=== PATIENT | female | born 1960 | race African-American/Black ===

== ENCOUNTER 2016-08-31 14:28 | Emergency (ER) | payer BC ==
[~2016-08-31] VITALS: Ht 165.1 cm; Wt 86.2 kg
[~2016-08-31 14:28] MED LIST: ALPR0.5T PO; ASPI81TA2 PO; CAND4TAB PO; INSU100I13 SQ; INSU100I17 SQ; METH4TAB2 PO
[2016-08-31 14:46] VITALS: BP 149/71
[2016-08-31] MEDS ORDERED: CYCL10TA2 PO (16:56)
[2016-08-31] MEDS ORDERED: CAND32TA2 PO (16:56)
--- NOTE | 2016-08-31 16:56 | PHYS DOC ---
Past Medical History Past Medical History: Diabetes-Type II, Hypertension Past Surgical History: Other Additional Past Surgical Histo: bowel resection, hernia repair Alcohol Use: Occasionally Drug Use: None Adult General Chief Complaint Chief Complaint: LOWER EXT PAIN HPI HPI Patient is a 56 year old female with history of diabetes type 2 and hypertension who presents today with right groin pain that began 2 days ago after stubbing her right groin on furniture. Patient denies falling. Patient herself is requesting a muscle relaxer. Review of Systems Review of Systems Constitutional: Denies fever or chills [] Eyes: Denies change in visual acuity, redness, or eye pain [] HENT: Denies nasal congestion or sore throat [] Respiratory: Denies cough or shortness of breath [] Cardiovascular: No additional information not addressed in HPI [] GI: Denies abdominal pain, nausea, vomiting, bloody stools or diarrhea [] : Denies dysuria or hematuria [] Musculoskeletal: Right groin pain Integument: Denies rash or skin lesions [] Neurologic: Denies headache, focal weakness or sensory changes [] Endocrine: Denies polyuria or polydipsia [] Allergies Allergies Allergies Coded Allergies Type Severity Reaction Last Updated Verified lisinopril Allergy Unknown 03/25/15 Yes Physical Exam Physical Exam Constitutional: Well developed, well nourished, no acute distress, non-toxic appearance. [] HENT: Normocephalic, atraumatic, bilateral external ears normal, oropharynx moist, no oral exudates, nose normal. [] Eyes: PERRLA, EOMI, conjunctiva normal, no discharge. [] Neck: Normal range of motion, no tenderness, supple, no stridor. [] Cardiovascular:Heart rate regular rhythm, no murmur [] Lungs & Thorax: Bilateral breath sounds clear to auscultation [] Abdomen: Bowel sounds normal, soft, no tenderness, no masses, no pulsatile masses. [] Skin: Warm, dry, no erythema, no rash. [] Back: No tenderness, no CVA tenderness. [] Extremities: Right groin with no obvious bruising. Tenderness diffusely on palpation of the right proximal hip. No right lower quadrant tenderness. Slightly Limited range of motion to the right lower extremity due to pain especially internal rotation. Neurologic: Alert and oriented X 3, normal motor function, normal sensory function, no focal deficits noted. [] Psychologic: Affect normal, judgement normal, mood normal. [] Current Patient Data Vital Signs Vital Signs Date Time Temp Pulse Resp B/P Pulse Ox O2 Delivery O2 Flow Rate FiO2 08/31/16 14:46 98.8 97 18 98 Room Air 98.8 EKG EKG [] Radiology/Procedures Radiology/Procedures [] Course & Med Decision Making Course & Med Decision Making Pertinent Labs and Imaging studies reviewed. (See chart for details) Patient is in the ED complaining of contusion to the right groin. She was discharged with Flexeril. She also requested a refill of high blood pressure medicine. She states she'll follow-up with her PCP as soon as possible. Rx for Atacand given for 7 days. She was provided return precautions and discharged in stable condition Dragon Disclaimer Dragon Disclaimer This electronic medical record was generated, in whole or in part, using a voice recognition dictation system. Departure Departure Impression: Primary Impression: Contusion of groin, right Additional Impression: Medication refill Disposition: HOME, SELF-CARE Condition: STABLE Referrals: UNKNOWN PCP NAME (PCP) Follow-up with your own doctor in one week Patient Instructions: Contusion Additional Instructions: You were seen for right groin contusion. Please follow-up with your primary care doctor in the next 7 days. Come back to the ED if symptoms worsen. Scripts Cyclobenzaprine Hcl 10 Mg Tablet1 Tab PO TID #30 TAB Prov:MENDY TOMAS APRN 08/31/16 Candesartan Cilexetil (Atacand)32 Mg Tablet1 Tab PO DAILY #7 TAB Ref 0 Prov:MENDY TOMAS APRN 08/31/16 Problem Qualifiers Primary Impression: Contusion of groin, right Encounter type: initial encounter Qualified Code: S30.1XXA - Contusion of abdominal wall, initial encounter MENDY TOMAS APRN Aug 31, 2016 16:56
== END 2016-08-31 17:06 | disposition home or self-care (01) ==
LOC: ER 14:28
DX: S30.1XXA Contusion of abdominal wall, initial encounter (principal); E11.9 Type 2 diabetes mellitus without complications; I10 Essential (primary) hypertension; Z88.8 Allergy status to other drugs, medicaments and biological substances; W22.03XA Walked into furniture, initial encounter; Y93.89 Activity, other specified; Y92.89 Other specified places as the place of occurrence of the external cause; Y99.8 Other external cause status
CPT/HCPCS: 99283